=== PATIENT | male | born 1960 | race Caucasian/White ===

== ENCOUNTER 2017-03-10 12:22 | Emergency (ER) | payer OTHER ==
[~2017-03-10 12:22] MED LIST: MOTRIN800 MG PO; NEU300 PO; PRILOSEC20 MG PO; TYLENOL WITH CO1 TA2 PO
[2017-03-10 15:17] VITALS: BP 129/85
== END 2017-03-10 15:17 | disposition home or self-care (01) ==
LOC: ED 12:22
DX: K21.9 Gastro-esophageal reflux disease without esophagitis (principal); R03.0 Elevated blood-pressure reading, without diagnosis of hypertension
CPT/HCPCS: J1885

== ENCOUNTER 2017-03-12 10:07 | Inpatient (IN) | payer OTHER ==
[~2017-03-12] VITALS: Ht 167.6 cm; Wt 99.5 kg
--- NOTE | 2017-03-12 10:20 | NUR ---
PT AMBULATORY TO LOBBY. PT A&0 X4, RESP E/U. PT IN NO DISTRESS. PT AWAITING ROOM AVAILABILITY.
--- NOTE | 2017-03-12 11:37 | NUR ---
PT BIB SPOUSE FOR C/O EPIGASTRIC ABD PAIN 05/24, PT WAS SEEN HERE SUNDAY AND WAS PRESCRIBED WITH ZOFRAN AND OMEPRAZOLE BUT DID NOT ASSISTANT MANAGER BILINGUAL MEDS, PT SPOUSE STS "ITS 15 DOLLARS FOR ZOFRAN I AM NOT GOING TO ASSISTANT MANAGER BILINGUAL THOSE MEDICATIONS AND PAY THAT MUCH FOR JUST A FEW OF THOSE PILLS" PT STATES HAVING BLACK STOOL TWICE SINCE YESTERDAY, PT REPORTS STOOL IS SOFT AND FORMED WHEN ASKED TO PT BUT PT SPOUSE STS IT IS LOOSE, PT DENIES DIARRHEA, PT REPORTS HAS RELIEF WITH PEPTO BISMOL BUT STS PAIN "BLOWS BACK UP AT NIGHT", PT DENIES N/D/C, STS LAST VOMITING X 1 ONLY ON SUNDAY, PT AAOX4, RESP EVEN AND UNLABORED, PT IN NO ACUTE DISTRESS
--- NOTE | 2017-03-12 11:41 | NUR ---
LAB AT BEDSIDE FOR BLOOD DRAW
[2017-03-12 11:49] LABS: BASOPHIL % 0.3 % (0-2); PLATELET COUNT 244 x10^3mcL (130-400); RED CELL DISTRIBUTION WIDTH 13.3 % (11.5-14.5)
[2017-03-12 12:11] LABS: CALCIUM 8.6 mg/dL (8.5-10.1); CARBON DIOXIDE 29.5 mmol/L (21-32); CHLORIDE SERUM 104 mmol/L (98-107); GFR1 > 60 mL/min; GLUCOSE SERUM 100 mg/dL (74-106); POTASSIUM SERUM 4.3 mmol/L (3.5-5.1); SODIUM SERUM 140 mmol/L (136-145)
[2017-03-12 12:15] LABS: ALBUMIN 3.7 g/dL (3.4-5.0); ALKALINE PHOSPHATASE 86 U/L (46-116); ALT/SGPT 108 U/L (16-63); AMYLASE 32 U/L (25-115); AST/SGOT 56 U/L (15-37); BILIRUBIN TOTAL 0.5 mg/dL (0.20-1.00); LIPASE 112 IU/L (73-393)
--- NOTE | 2017-03-12 12:27 | NUR ---
PT BACK FROM XRAY, AMBULATORY TO ER RESTROOM WITH A STEADY GAIT.
--- NOTE | 2017-03-12 14:17 | NUR ---
RESIDENT AT BEDSIDE. PT DENIES URGE TO USE RESTROOM AND PT AT BEDSIDE
[2017-03-12 14:46] LABS: CHOLESTEROL/HDL RATIO 2.5; MAGNESIUM 2.4 mg/dL (1.8-2.4); PHOSPHOROUS 3.8 mg/dL (2.5-4.9)
--- NOTE | 2017-03-12 14:51 | NUR ---
CALLED AND GAVE REPORT TO RITA, ALL QUESTIONS ADDRESSED AT THIS TIME.
[2017-03-12 14:55] LABS: FREE T4 0.81 ng/dL (0.76-1.46); FREE THYROXINE INDEX 1.9 ug/dL (1.4-4.5); T3 TOTAL 1.08 ng/mL; T4(THYROXINE) 6.2 ug/dL (4.7-13.3)
[2017-03-12 15:10] LABS: microscopic required? NO
[2017-03-12 15:22] LABS: urine erythrocyte NEGATIVE (NEGATIVE)
[2017-03-12 15:46] VITALS: BP 141/90
--- NOTE | 2017-03-12 15:52 | NUR ---
RECEIVED PT FROM ED VIA TACO. ORIENTED PT TO ROOM AND SURROUNDINGS. IV NOTED TO RAC PATENT AND INTACT. TELE 11 PLACED ON PT READING NSR. INSTRUCTED PT ON THE USE OF CALL LIGHT FOR ASSISTANCE. ENDORSED PT TO PRIMARY NURSE RITA
--- NOTE | 2017-03-12 16:00 | NUR ---
PT TAKEN TO RADIOLOGY FOR SMALL BOWEL FOLLOW THROUGH. EFFORTLESS BREATHING, NO DISTRESS. PT TRANSPORTED VIA WHEELCHAIR.
--- NOTE | 2017-03-12 18:40 | NUR ---
NG TUBE ADMINISTRATION. PT TOLERATED WELL. RADIOLOGY CONTACTED FOR KUB TO CONFIRM PLACEMENT. CALL LIGHT WITHIN REACH, AT BEDSIDE.
[2017-03-12 19:30] VITALS: BP 133/74
--- NOTE | 2017-03-12 19:30 | NUR ---
PT RESTING IN BED. ALERT AND AWAKE. AOX4. VERBAL WITH CLEAR SPEECH. NO S/S OF RESPIRATORY DISTRESS NOTED. LUNGS CLEAR BILATERALLY. ON TELE #11, NSR. NG TUBE IN PLACE. REMAINS NPO AT THIS TIME. BOWEL SOUNDS ACTIVE. ABD DISTENDED, BUT SOFT. SKIN WARM AND DRY. IV TO RIGHT AC PATENT AND INTACT. IV INFUSING WELL. NO S/S OF INFECTION NOTED. NO EDEMA NOTED. PULSES PALPABLE. SCDS IN PLACE. SIDE RAILS UP. NO S/S OF DISTRESS NOTED. CALL LIGHT WITHIN REACH. WILL CONTINUE TO MONITOR.
[2017-03-12 21:22] VITALS: BP 142/87
--- NOTE | 2017-03-12 22:30 | NUR ---
DR. MEJIA UPDATED REGARDING PT'S RESULTS OF SMALL BOWEL FOLLOW THROUGH AND KUB. INFORMED THAT NG TUBE WAS ADVANCED. DR. MEJIA MADE AWARE.
--- NOTE | 2017-03-13 00:17 | NUR ---
KUB RESULTS CONFIRMED NG TUBE PLACEMENT. PLACED PT ON LOW CONTINUOUS SUCTION PER DR. HERNÁNDEZ. PT TOLERATING WELL. NO S/S OF DISTRESS OR DISCOMFORT NOTED. BREATHING EQUAL AND UNLABORED. IV PATENT AND INFUSING WELL. CALL LIGHT WITHIN REACH. WILL CONTINUE TO MONITOR.
--- NOTE | 2017-03-13 03:30 | NUR ---
PT RESTING IN BED WITH EYES CLOSED. BREATHING EQUAL AND UNLABORED. NO S/S OR RESPIRATORY DISTRESS NOTED. NG TUBE REMAINS ON LOW CONTINUOUS SUCTION. IV PATENT AND INFUSING WELL. NO S/S OF DISTRESS OR DISCOMFORT NOTED. CALL LIGHT WITHIN REACH. WILL CONTINUE TO MONITOR.
[2017-03-13 05:59] VITALS: BP 138/83
--- NOTE | 2017-03-13 06:15 | NUR ---
PT SLEPT WELL THROUGH THE NIGHT. EASILY AROUSED WHEN NAME CALLED. DENIES ANY PAIN OR DISCOMFORT AT THIS TIME. NG TUBE REMAINS IN PLACE TO RIGHT NARE AND ON LOW CONTINUOUS SUCTION. NO S/S OF DISTRESS NOTED. IV PATENT AND INFUSING WELL. CALL LIGHT WITHIN REACH. WILL CONTINUE TO MONITOR.
[2017-03-13 06:21] LABS: BASOPHIL % 0.5 % (0-2); PLATELET COUNT 222 x10^3mcL (130-400); RED CELL DISTRIBUTION WIDTH 13.3 % (11.5-14.5)
[2017-03-13 06:32] LABS: CALCIUM 8.4 mg/dL (8.5-10.1); CARBON DIOXIDE 24.7 mmol/L (21-32); CHLORIDE SERUM 105 mmol/L (98-107); CREATININE SERUM 0.9 mg/dL (0.7-1.3); GFR1 > 60 mL/min; GLUCOSE SERUM 91 mg/dL (74-106); MAGNESIUM 2.5 mg/dL (1.8-2.4); PHOSPHOROUS 3.4 mg/dL (2.5-4.9); SODIUM SERUM 139 mmol/L (136-145)
--- NOTE | 2017-03-13 08:07 | NUR ---
PT RECEIVED DURING CHANGE OF SHIFT, A/OX4, TELE 11, NSR, DENIES CHEST PAIN, PULSES PRESENT NO EDEMA NOTED, LUNGS CTA ON RA, DENIES SOB, BREATHING EVEN AND UNLABORED, BOWEL SOUNDS ACTIVE, ABD DISTENDED AND SOFT, DENIES N/V/D, DENIES ABD PAIN AT THIS TIME, PT ABLE TO VOID, ABLE TO AMBULATE, SKIN WARM DRY AND INTACT, OLD SCARS TO ABD, DENIES ALL PAIN AT THIS TIME, IV TO RAC INFUSING NS AT 130ML/HR, CALM AND COOPERATIVE, CALL LIGHT WITHIN REACH, WILL CONTINUE TO MONITOR.
--- NOTE | 2017-03-13 08:23 | NUR ---
PT STATED NG TUBE WAS MAKING HIM "ANTSY", SPOKE WITH DR. WALL, DR. WALL ORDERED NG TUBE TO BE D/C'D, NG TUBE DC'D, PT REPORTS DECREASED ANXIETY, DR. WALL NOTIFIED NG TUBE ALREADY DC'D, CALL LIGHT WITHIN REACH, WILL CONTINUE TO MONITOR.
--- NOTE | 2017-03-13 08:43 | NUR ---
PT DENIES SOB, DENIES PAIN, PT STATES ANXIETY IS MUCH LESS NOW THAT NG TUBE IS OUT, PT REFUSED COLACE, CALL LIGHT WITHIN REACH, WILL CONTINUE TO MONITOR.
--- NOTE | 2017-03-13 09:18 | NUR ---
DR. PEREZ AND RESIDENTS MAKING ROUNDS, PLAN OF CARE DISCUSSED.
[2017-03-13 10:07] VITALS: BP 139/82
--- NOTE | 2017-03-13 11:14 | NUR ---
PT DENIES SOB, DENIES PAIN, WATCHING TV, CALL LIGHT WITHIN REACH, PT AWARE OF ADVANCEMENT OF DIET PLANNED FOR TODAY, STILL DENIES N/V, WILL CONTINUE TO MONITOR.
--- NOTE | 2017-03-13 12:19 | NUR ---
PT WATCHING TV, DENIES PAIN, DENIES SOB, DENIES N/V/D, STATES HE IS HUNGRY, PT INFORMED THAT LUNCH WILL ARRIVE AT 1230, CALL LIGHT WITHIN REACH, WILL CONTINUE TO MONITOR.
--- NOTE | 2017-03-13 12:33 | NUR ---
PT FINISHED 100% OF LUNCH, SECOND HELPING OF SOUP REQUESTED, DENIES N/V.
--- NOTE | 2017-03-13 13:14 | NUR ---
DENIES SOB, DENIES PAIN, DENIES N/V, TOLERATING DIET, CALL LIGHT WITHIN REACH, WILL CONTINUE TO MONITOR.
[2017-03-13 13:23] VITALS: BP 148/79
--- NOTE | 2017-03-13 14:18 | NUR ---
PT DENIES SOB, DENIES PAIN, DENIES N/V, VISITOR AT BEDSIDE, CALL LIGHT WITHIN REACH, WILL CONTINUE TO MONITOR.
--- NOTE | 2017-03-13 15:21 | NUR ---
PT DENIES SOB, DENIES PAIN, DENIES N/V, REQUESTED PUDDING, VISITOR AT BEDSIDE, CALL LIGHT WITHIN REACH, WILL CONTINUE TO MONITOR.
--- NOTE | 2017-03-13 17:15 | NUR ---
PT C/O FEELING ANXIOUS, MEDICATED PER EMAR, DENIES SOB, DENIES PAIN, CALL LIGHT WITHIN REACH, WILL CONTINUE TO MONITOR.
[2017-03-13 17:30] VITALS: BP 142/87
--- NOTE | 2017-03-13 18:14 | NUR ---
PT DENIES SOB, DENIES PAIN, DENIES N/V, FINISHED 100% OF DINNER, CALL LIGHT WITHIN REACH, WILL CONTINUE TO MONITOR.
--- NOTE | 2017-03-13 20:13 | NUR ---
PT CURRENTLY RESTING IN BED, NO ACUTE DISTRESS. A/O X4. NO TELE, MED/SURG. DENIES CHEST PAIN. PULSES PALPABLE IN ALL EXTREMITIES, NO EDEMA NOTED. LUNG SOUNDS CTA BILATERALLY. BOWEL SOUNDS ACTIVE, LAST BM 03/13/17. DENIES ABD PAIN, DENIES N/V/D. VOIDING WELL. AMBULATORY. SKIN INTACT, SCARS NOTED TO ABD FROM PREVIOUS SURGERY. IV PATENT AND INTACT. BED IN LOWEST POSITION, SIDE RAILS UP X2, SCDS IN PLACE, CALL LIGHT WITHIN REACH. WILL CONTINUE TO MONITOR.
[2017-03-13 21:57] VITALS: BP 123/77
--- NOTE | 2017-03-14 01:07 | NUR ---
PT CURRENTLY RESTING IN BED, NO ACUTE DISTRESS. WILL CONTINUE TO MONITOR.
--- NOTE | 2017-03-14 06:22 | NUR ---
PT SLEPT PERIODICALLY THROUGHOUT NIGHT, NO ACUTE DISTRESS. ALL NEEDS MET AND ATTENDED TO. NO SIGNIFICANT CHANGES. IV PATENT AND INTACT. BED IN LOWEST POSITION, SIDE RAILS UP X2, SCDS IN PLACE, CALL LIGHT WITHIN REACH. WILL ENDORSE CARE TO ONCOMING NURSE.
[2017-03-14 06:35] LABS: BASOPHIL % 0.3 % (0-2); PLATELET COUNT 274 x10^3mcL (130-400); RED CELL DISTRIBUTION WIDTH 13.3 % (11.5-14.5)
[2017-03-14 06:45] VITALS: BP 135/78
[2017-03-14 07:23] LABS: CALCIUM 9.2 mg/dL (8.5-10.1); CARBON DIOXIDE 25.8 mmol/L (21-32); CHLORIDE SERUM 102 mmol/L (98-107); GFR1 > 60 mL/min; GLUCOSE SERUM 113 mg/dL (74-106); MAGNESIUM 2.2 mg/dL (1.8-2.4); PHOSPHOROUS 3.9 mg/dL (2.5-4.9); POTASSIUM SERUM 4.3 mmol/L (3.5-5.1); SODIUM SERUM 138 mmol/L (136-145)
--- NOTE | 2017-03-14 08:00 | NUR ---
PT AWAKE AND ALERT. TEMP 96.6. PT IS MED SURG PT. RESP 18 EVEN. BREATH SOUNDS CLEAR. NO COUGH OR SOB. ABD ROUNDED BUT SOFT, BOWEL TONES PRESENT. REPORTS "HAD BM YESTERDAY. DID OK WITH BREAKFAST, NO NAUSEA." DENIES ABD PAIN. VOIDING QS. NO EDEMA. PULSES PRESENT. SCD IN PLACE. IV PATENT RAC INFUSING NORMAL SALINE 10CC/HR. SIDE RAILS UP X2. CALL LIGHT IN REACH. PT AMBULATES WELL IN HALLWAY. REPORTS "FEELS ANXIOUS TODAY, CAN I HAVE SOMETHING." WILL CHECK WITH DR WALL FOR NEW ORDER.
--- NOTE | 2017-03-14 08:55 | NUR ---
DR PEREZ AND MEDICAL TEAM IN ON ROUNDS. CHARGE AND PRIMARY NURSE PRESENT. REVIEWED PLAN OF CARE, PTS TOLERANCE OF CCHO DIET THIS AM. FOR DISCHARGE HOME TODAY. PT VERBALIZED UNDERSTANDING. DR WALL HERE. UPDATED WITH PT REQUEST FOR ANTIANXIETY MED. WILL ADD NEW ORDER.
--- NOTE | 2017-03-14 09:05 | NUR ---
MED WITH ATIVAN 0.5MG PO ORDERED.
[2017-03-14] MEDS ORDERED: SIMETHICONE80 MG CH (09:14)
[2017-03-14] MEDS ORDERED: COL100 PO (09:15)
[2017-03-14] MEDS ORDERED: REG5 PO (09:18)
[2017-03-14 09:40] VITALS: BP 123/83
--- NOTE | 2017-03-14 10:10 | NUR ---
PT RESTING. NO DISTRESS. CALL LIGHT IN REACH.
[2017-03-14 11:30] VITALS: BP 123/83
--- NOTE | 2017-03-14 12:20 | NUR ---
DR WALL IN TO SEE PT. DISCHARGE PACKET COMPLETED. WORK NOTE GIVEN. IV REMOVED CATH TIP INTACT. ARMBANDS REMOVED. REVIEWED DC INSTRUCTIONS RELATED TO MEDS, ACTIONS, SIDE EFFECTS AND SCHEDULE. FOLLOWUP APPT WITH DR DOWNING MADE. PT VERBALIZED UNDERSTANDING. DC WITH BELONGINGS TO PRIVATE CAR AT THIS TIME.
== END 2017-03-14 12:25 | disposition home or self-care (01) | DRG 389 ==
LOC: ED 10:07 → MU 13:59 → DU 13:59 → MU 03-13 10:05
PROVIDERS: Emergency Medicine; ADMIT Family Medicine
DX: K56.7 Ileus, unspecified (principal); E72.20 Disorder of urea cycle metabolism, unspecified; I16.0 Hypertensive urgency; R73.03 Prediabetes; E83.42 Hypomagnesemia; E83.51 Hypocalcemia; K76.0 Fatty (change of) liver, not elsewhere classified; E03.9 Hypothyroidism, unspecified; Z68.35 Body mass index [BMI] 35.0-35.9, adult; Z79.1 Long term (current) use of non-steroidal anti-inflammatories (NSAID)
CPT/HCPCS: 83880; 84439; G0480; J1885; J2060; J2270; J2405; J2765; J7030; Q0092; Q9967

== ENCOUNTER 2020-08-26 14:17 | Emergency (ER) | payer OTHER, SELFPAY ==
[~2020-08-26] VITALS: Ht 167.6 cm; Wt 92.5 kg
[~2020-08-26 14:17] MED LIST changes: +COL100 PO; +REG5 PO; +SIMETHICONE80 MG CH
[2020-08-26 15:58] VITALS: BP 145/89
== END 2020-08-26 15:58 | disposition home or self-care (01) ==
LOC: ED 14:17
DX: J02.9 Acute pharyngitis, unspecified (principal); E78.00 Pure hypercholesterolemia, unspecified; K21.9 Gastro-esophageal reflux disease without esophagitis; Z20.828 Contact with and (suspected) exposure to other viral communicable diseases
CPT/HCPCS: U0003